=== PATIENT | female | born 1995 | race Caucasian/White ===

== ENCOUNTER 2016-12-08 19:52 | Emergency (ER) | payer OTHER ==
[~2016-12-08] VITALS: Ht 172.7 cm; Wt 69.0 kg
[~2016-12-08 19:52] MED LIST: CIPR500T4 PO; IBUP-1542 PO
[2016-12-08 20:04] VITALS: Ht 172.7 cm; Wt 69.0 kg
[2016-12-08] MEDS ORDERED: ACETAMINOPHEN 500 MG TAB PO STA (21:14)
--- NOTE | 2016-12-08 22:35 | RADRPT ---
PROCEDURE: XR Chest. CLINICAL INDICATION: Cough for 3 weeks with fever. TECHNIQUE: Portable AP semi - erect view of the chest was obtained. COMPARISON: None. FINDINGS: The cardiomediastinal silhouette is within normal limits. The lungs are clear. There is no evidenc e for pleural effusion, pneumothorax or pulmonary vascular congestion. The osseous structures are i ntact with no evidence for acute abnormality. RPTAT:HJJR IMPRESSION: No evidence for acute intrathoracic pathology. Physician Lay Date Time Electronically viewed and signed by Physician Lay on 12/08/2016 22:34 /
--- NOTE | 2016-12-08 22:39 | RADRPT ---
PROCEDURE: Ultrasound neck soft tissues limited CLINICAL INDICATION: Neck swelling TECHNIQUE: Real time sonographic imaging of the neck is performed bilaterally and 18 soliman scale/ D oppler images are submitted for review COMPARISON: None available FINDINGS: The area of concern in the right neck shows no evidence of abnormality. The left neck demonstrates rounded hypoechoic lesion measuring 2.4 x 1.7 x 1.8 cm having some unpaid intern al blood flow and concerning for lymphadenopathy or possibly mass. RPTAT:HJJR IMPRESSION: 1. Solid hypoechoic 2.4 x 1.8 x 1.7 cm left submandibular abnormality most likely adenopathy with no right neck sided abnormality identified. 2. The abnormality probably reflects lymphadenitis but etiologies such as lymphoma are difficult to entirely exclude. Follow-up evaluation is recommended. Physician Lay Date Time Electronically viewed and signed by Physician Lay on 12/08/2016 22:38 /
[2016-12-09] MEDS ORDERED: AMO500 PO (00:04)
[2016-12-09 00:20] VITALS: BP 118/67; PULSE 95; RESP 16; TEMP 98.7
--- NOTE | 2016-12-09 01:01 | ERD ---
ER Documentation Chief Complaint Date/Time DATE: 12/09/16 TIME: 00:53 Chief Complaint lumps on neck x 1 day, cough x 3 weeks HPI This is a 21-year-old female presenting to the emergency department for sore throat, cough and palpable masses to her neck. Patient states she has had a cough for the past 3 weeks. Describes cough is dry nonproductive. Patient has sore throat and pain with swallowing. Denies any difficulty swallowing. No drooling. Patient has had tactile fevers at home. Has been taking Tylenol. Patient noticed she had palpable masses on bilateral sides of her neck. Masses are nontender. Denies shortness of breath, difficulty breathing, chest pain, wheezing or labored breathing. No fatigue or increased lethargy. No abdominal pain nausea, vomiting or diarrhea., No rashes ROS All systems reviewed and are negative except as per history of present illness. Medications Home Meds Active Scripts Amoxicillin* (Amoxicillin*) 500 Mg Cap, 500 MG PO BID for 10 Days, CAP Prov:PEYTON HUANG NP 12/09/16 Ibuprofen* (Motrin*) 600 Mg Tab, 600 MG PO Q6H Y for PAIN AND OR ELEVATED TEMP, #30 Prov:JAMI VIVEROS NP 07/02/15 Ciprofloxacin Hcl* (Ciprofloxacin Hcl*) 500 Mg Tablet, 500 MG PO BID for 10 Days , TAB Prov:JAMI VIVEROS NP 07/02/15 Allergies Allergies: Coded Allergies: No Known Allergy (Unverified , 07/02/15) PMhx/Soc History of Surgery: Yes (tonsilectomy, wisdom teeth) Anesthesia Reaction: No Hx Neurological Disorder: No Hx Respiratory Disorders: No Hx Cardiac Disorders: No Hx Psychiatric Problems: No Hx Miscellaneous Medical Probl: Yes (strep throat) Hx Alcohol Use: No Hx Substance Use: No Hx Tobacco Use: No Smoking Status: Never smoker Physical Exam Vitals Vital Signs Date Time Temp Pulse Resp B/P Pulse Ox O2 Delivery O2 Flow Rate FiO2 12/09/16 00:20 98.7 95 16 118/67 99 Room Air 12/08/16 20:04 100.3 82 18 128/69 95 Physical Exam Const: No acute distress, alert Head: Atraumatic Eyes: Normal Conjunctiva ENT: Normal External Ears, Nose and Mouth. Neck: Full range of motion..~ No meningismus. palpable nontender posterior lymph nodes to bilateral sides of neck. Resp: Clear to auscultation bilaterally. No wheezing, rhonchi or crackles. Cardio: Regular rate and rhythm, no murmurs Abd: Soft, non tender, non distended. Normal bowel sounds Skin: No petechiae or rashes Back: No midline or flank tenderness Ext: No cyanosis, or edema Neur: Awake and alert Psych: Normal Mood and Affect Results 24 hrs Current Medications Medications (Trade) Dose Ordered Sig/Jason Route PRN Reason Start Time Stop Time Status Last Admin Dose Admin Acetaminophen (Tylenol Tab) 500 mg ONCE STAT PO 12/08/16 21:14 12/08/16 21:16 DC 12/08/16 21:51 Procedures/MDM ED COURSE: The patient was stable throughout ED course. I kept the patient and/or family informed of laboratory and diagnostic imaging results throughout the ED course. Microbiology Rapid strep swab negative Imaging Ultrasound soft tissue Patient: JOSE CHAHAL : 1995 Age: 21 Sex: F MR #: [id number] DOS: 12/08/162133 Ordering MD: PEYTON HUANG NP Location: [facility] Room/Bed: PROCEDURE: Ultrasound neck soft tissues limited CLINICAL INDICATION: Neck swelling TECHNIQUE: Real time sonographic imaging of the neck is performed bilaterally and 18 soliman scale/ Doppler images are submitted for review COMPARISON: None available FINDINGS: The area of concern in the right neck shows no evidence of abnormality. The left neck demonstrates rounded hypoechoic lesion measuring 2.4 x 1.7 x 1.8 cm having some internal blood flow and concerning for lymphadenopathy or possibly mass. RPTAT:HJJR IMPRESSION: 1. Solid hypoechoic 2.4 x 1.8 x 1.7 cm left submandibular abnormality most likely adenopathy with no right neck sided abnormality identified. 2. The abnormality probably reflects lymphadenitis but etiologies such as lymphoma are difficult to entirely exclude. Follow-up evaluation is recommended. Patient: JOSE CHAHAL : 1995 Age: 21 Sex: F MR #: [id number] DOS: 12/08/162113 Ordering MD: PEYTON HUANG NP Location: [facility] Room/Bed: PROCEDURE: XR Chest. CLINICAL INDICATION: Cough for 3 weeks with fever. TECHNIQUE: Portable AP semi - erect view of the chest was obtained. COMPARISON: None. FINDINGS: The cardiomediastinal silhouette is within normal limits. The lungs are clear. There is no evidence for pleural effusion, pneumothorax or pulmonary vascular congestion. The osseous structures are intact with no evidence for acute abnormality. RPTAT:HJJR IMPRESSION: No evidence for acute intrathoracic pathology. MDM: 21-year-old female presents emergency department for cough, sore throat, fever and lymphadenopathy patient has had cough 3 weeks. Cough is dry nonproductive.. Lymphadenopathy noticed today to posterior cervical nodes bilaterally. Temp of 100.3F upon arrival to ED. Patient has sore throat and pain with swallowing. No difficulty swallowing or drooling. ENT exam reveals enlarged posterior cervical lymph nodes bilaterally. No erythema or exudate to posterior pharynx. No peritonsillar abscess. Patient given Tylenol. Rapid strep swab is negative. Ultrasound soft tissue reviewed by radiologist as Solid hypoechoic 2.4 x 1.8 x 1.7 cm left submandibular abnormality most likely adenopathy with no right neck sided abnormality identified. The abnormality probably reflects lymphadenitis but etiologies such as lymphoma are difficult to entirely exclude. Follow-up evaluation is recommended. Chest x-ray reviewed by radiologist as no evidence for acute intrathoracic pathology. Patient appears well, stable and calm throughout ED visit. Fever reduced. Discussed findings at length with patient and patient's family members. Diagnosis is lymphadenitis. Differential diagnosis includes but not limited to viral pharyngitis, strep pharyngitis, EBV, rubella and lymphadenopathy not otherwise specified. Low suspicion for peritonsillar abscess, pneumonia or pleural effusion. Patient is appropriate for outpatient management and will be given prescription for amoxicillin and ibuprofen. Instructed mother to follow-up with primary care provider in the next 2-3 days for reassessment. Return to ED for any high fever, chest pain, difficulty breathing, shortness breath, wheezing, vomiting, diarrhea, abdominal pain or any new or worsening symptoms. Patient verbalizes understanding. All questions answered at discharge. Departure Diagnosis: Primary Impression: Lymphadenitis Additional Impression: Sore throat Condition: Stable Patient Instructions: When You Have a Sore Throat, Self-Care for Sore Throats Additional Instructions: Call your primary care doctor TOMORROW for an appointment during the next 1 WEEK.Tell the trade union secretary that you were referred from this facility. See the doctor sooner or return here if your condition worsens before your appointment time. Return to ED for any high fever, chest pain, difficulty breathing, shortness breath, wheezing, vomiting, diarrhea, abdominal pain or any new or worsening symptoms. PEYTON HUANG NP Dec 09, 2016 01:01
== END 2016-12-09 00:22 | disposition home or self-care (01) ==
LOC: FTE 19:52
DX: I88.9 Nonspecific lymphadenitis, unspecified (principal); J02.9 Acute pharyngitis, unspecified; R05 Cough
CPT/HCPCS: 71010; 76536; 87880